=== PATIENT | female | born 1970 | race Caucasian/White ===

== ENCOUNTER 2016-07-13 05:12 | Day surgery (SDC) | payer BC ==
[2016-07-12 12:48] LABS: ASPARTATE AMINO TRANSFERASE 24 U/L (15-37); BLOOD UREA NITROGEN 19 mg/dL (7-18)
[~2016-07-13] VITALS: Ht 172.7 cm; Wt 95.5 kg
[~2016-07-13 05:12] MED LIST: CHOL500015 PO; DULO30CA2 PO; MELO-184 PO; [UNRECOGNIZED DRUG - OTHER] PO; [UNRECOGNIZED DRUG - OTHER] PO; [UNRECOGNIZED DRUG - REMARK] PO
[2016-07-13] MEDS ORDERED: LACTATED RINGERS 1,000 ML IV SCH (05:51)
[2016-07-13 06:10] LABS: HCG UR OBC PASS
[2016-07-13 06:13] VITALS: BP 146/95
[2016-07-13] MEDS ORDERED: LOSA50TA6 PO (06:16)
[2016-07-13] MEDS ORDERED: FENTANYL PF 250 MCG/5ML ONE (07:24)
[2016-07-13] MEDS ORDERED: MIDAZOLAM 1 MG/ML, 2ML ONE (07:24)
[2016-07-13] MEDS ORDERED: PROPOFOL 10 MG/ML, 20ML ONE (07:45)
[2016-07-13] MEDS ORDERED: SUCCINYLCHOLINE 20 MG/ML, 10ML ONE (07:45)
[2016-07-13] MEDS ORDERED: PROPOFOL 10 MG/ML, 50ML ONE (07:45)
[2016-07-13] MEDS ORDERED: ONDANSETRON 2MG/ML, 2ML ONE (07:45)
[2016-07-13] MEDS ORDERED: FENTANYL PF 100 MCG/2ML IV PRN (09:00)
[2016-07-13] MEDS ORDERED: MIDAZOLAM 1 MG/ML, 2ML IV PRN (09:00)
[2016-07-13] MEDS ORDERED: OXYcodone 5 MG/5 ML ORAL.SOL UDC PO PRN (09:00)
[2016-07-13] MEDS ORDERED: ONDANSETRON 2MG/ML, 2ML IVPush PRN (09:00)
[2016-07-13] MEDS ORDERED: ACETAMINOPHEN 325 MG TABLET PO PRN (09:00)
[2016-07-13] MEDS ORDERED: EPHEDRINE 50 MG/ML, 1ML IVPush PRN (09:00)
[2016-07-13] MEDS ORDERED: HYDROmorphone 1 MG/ML, 1ML IV PRN (09:00)
[2016-07-13] MEDS ORDERED: MEPERIDINE/PF 25MG/0.5ML IVPush PRN (09:00)
[2016-07-13] MEDS ORDERED: methylPREDNISolone SOD SUCC 125 MG/2 ML IVPush SCH (10:00)
[2016-07-13] MEDS ORDERED: ALBUTEROL/IPRATROPIUM 2.5MG/0.5MG, 3 ML ONE (15:14)
[2016-07-13] MEDS ORDERED: ALBUTEROL/IPRATROPIUM 2.5MG/0.5MG, 3 ML NEB ONE (15:30)
== END 2016-07-13 20:10 | disposition home or self-care (01) ==
LOC: OR 05:12
PROVIDERS: ATTEND Internal Medicine Critical Care Medicine
DX: R59.1 Generalized enlarged lymph nodes (principal); R91.8 Other nonspecific abnormal finding of lung field; Z88.0 Allergy status to penicillin; J40 Bronchitis, not specified as acute or chronic; I10 Essential (primary) hypertension; Z88.3 Allergy status to other anti-infective agents
CPT/HCPCS: 31652; 36415; 71010; 80053; 81025; 88172; 88173; 88305; 88312; 94640; J0330; J2250; J2405; J2704; J2930; J3010; J7120; 31625; J7620